=== PATIENT | female | born 1970 | race Hispanic/Latino ===

== ENCOUNTER 2017-03-09 20:50 | Observation (INO) | payer OTHER ==
[~2017-03-09] VITALS: Ht 165.1 cm; Wt 93.4 kg
--- NOTE | 2017-03-09 21:17 | NUR ---
ADVISED OF BUSY ER STATUS AMD REMANDED TO THE WR.
--- NOTE | 2017-03-09 21:51 | NUR ---
walked back to room 15.
[2017-03-09 22:50] LABS: HEMATOCRIT 41.8 % (37.0-47.0); HEMOGLOBIN 13.7 g/dl (12.0-16.0); IMMATURE GRANULOCYTES 0.5 % (0.0-1.0); MEAN CELL VOLUME 84.6 fL CALC (80.0-100.0); MEAN CORPUSCULAR HGB 27.7 pG CALC (26.0-32.0); MEAN CORPUSCULAR HGB CONC 32.8 g/L CALC (32.0-36.0); NEUT# 17.3 thou/uL (2.00-7.15); RED BLOOD COUNT 4.94 mill/uL (4.20-5.60); RED CELL DISTRI WIDTH 14.3 % (11.5-15.5)
[2017-03-09 23:03] LABS: ALBUMIN 4.4 g/dL (3.2-5.0); ALKALINE PHOSPHATASE 121 u/l (38-126); ANION GAP 19 (6-22 (CALC)); BILIRUBIN, TOTAL 1.6 mg/dL (0.0-1.4); BUN 18 mg/dL (7-17); BUN/CREATININE RATIO 24 (12-20 (CALC)); CALCIUM 9.9 mg/dL (8.4-10.2); CARBON DIOXIDE 24 mmol/l (22-30); CHLORIDE 103 mmol/l (95-108); CREATININE 0.8 mg/dL (0.5-1.0); GFR > 60 ML/MIN (>=60 (CALC)); GFR FOR AFR.AMER. > 60 ML/MIN (>=60 (CALC)); GLUCOSE 125 mg/dL (65-105); POTASSIUM 4.1 mmol/l (3.5-5.1); SGOT/AST 17 u/l (14-36); SGPT/ALT 38 u/l (9-52); SODIUM 141 mmol/l (137-146); TOTAL PROTEIN 7.8 g/dL (6.3-8.2)
--- NOTE | 2017-03-09 23:05 | NUR ---
W/P/D NO COUGH OR CONGESTION.NO C/O PAIN
--- NOTE | 2017-03-10 00:20 | NUR ---
FEVER HAS RESOLVED NO SWEATS NO COUGH NO CONGESTION
--- NOTE | 2017-03-10 00:50 | NUR ---
PHONE RWEPORT TO MARIA M NORRIS ON MS2
--- NOTE | 2017-03-10 01:12 | NUR ---
TO FLOOR VIA STRETCHER IN IMPROVED STABLE CONDITION
--- NOTE | 2017-03-10 01:20 | NUR ---
PT TRANSFERRED TO FLOOR VIA STRETCHER ACCOMPANIED BY ENOCRN;PT AMBULATED WITH A STEADY GAIT TO BEDSIDE;WT AND VS OBTAINED BY MARK LOPEZ;PT ORIENTED TO ROOM AND CALL LIGHT SYSTEM AND VERBALIZES UNDERSTANDING;ASSESSMENT COMPLETED;#20G TO LAC INFUSING LR @ 100ML/HR WELL;SKIN INTACT;PT REPORTS HAVING A FEVER FOR 3 DAYS AND A "KNOT" ON THE RIGHT SIDE OF HER NECK;PT DENIES ANY PAIN AT THIS TIME BUT IS EDUCATED ON PAIN SCALE AND REPORTING;RESPIRATIONS EVEN AND UNLABORED ON RA;PT CURRENT TEMP 100.2,PT TO BE MEDICATED WITH PRN TYLENOL 1000MG;SAFETY PRECAUTIONS REINFORCED;PT DENIES ANY NEEDS AT THIS TIME AND IS EDUCATED TO CALL FOR ASSISTANCE IF NEEDED;CALL LIGHT IN REACH;WILL CONTINUE TO MONITOR
--- NOTE | 2017-03-10 03:00 | NUR ---
PT CURRENT TEMP 98.4
[2017-03-10 05:27] VITALS: BP 114/70
--- NOTE | 2017-03-10 05:30 | NUR ---
PT APPEARS TO BE SLEEPING WITH EYES CLOSED;WOKE PT TO OBTAIN VS;PT VOICES NO COMPLAINTS OR CONCERNS AT THIS TIME;PT AMBULATED TO RESTROOM WITH A STEADY GAIT;UA COLLECT;IV FLUIDS INFUSING WELL TO LAC;RESPIRATIONS EVEN AND UNLABORED ON RA;PT DENIES ANY OTHER NEEDS AT THIS TIME;PT EDUCATED TO CALL FOR ASSISTANCE IF NEEDED;CALL LIGHT IN REACH;WILL CONTINUE TO MONITOR
[2017-03-10 06:12] LABS: BARBITURATES NEGATIVE (NEGATIVE); COCAINE NEGATIVE (NEGATIVE); METHADONE NEGATIVE (NEGATIVE); OXCYCODONE NEGATIVE (NEGATIVE); TETRAHYDROCANNABIONOL NEGATIVE (NEGATIVE); TRICYLIC ANTIDEPRESSANTS POSITIVE (NEGATIVE)
--- NOTE | 2017-03-10 07:22 | NUR ---
SHIFT CHANGE REPORT FROM SEA, PT SLEEPING BUT AWAKENS TO VERBAL STIMULI, STATES SHE JUST FEELS TIRED AND C/O DRY MOUTH, ICE CHIPS OFFERED, IVF INFUSING, CALL DOMINGUEZ IN REACH.
[2017-03-10 08:11] VITALS: BP 116/73
[2017-03-10] MEDS ORDERED: PROTONIX40 M2 PO (10:08)
[2017-03-10] MEDS ORDERED: BISOPRL/HCT1 PO (10:08)
[2017-03-10] MEDS ORDERED: MEDDOSEPAK PO (10:09)
[2017-03-10] MEDS ORDERED: AUGMENTIN875TAB PO (10:09)
--- NOTE | 2017-03-10 11:26 | NUR ---
PT STATES SWELLING TO R.NECK HAS RECEEDED AND PAIN MUCH CONTROLLED, ALL NEEDS ADDRESSED, CALL DOMINGUEZ IN REACH.
--- NOTE | 2017-03-10 14:07 | NUR ---
Discharge instructions given. Patient verbalizes understanding of same. Discharged in good condition via Wheelchair to Home with family. All belongings sent with pt.
== END 2017-03-10 14:00 | disposition home or self-care (01) | DRG 153 ==
LOC: ED 20:50 → ED-I 03-10 00:12 → ED 03-10 00:28 → MS2 03-10 00:29
PROVIDERS: Emergency Medicine; ADMIT Internal Medicine; ATTEND Internal Medicine
DX: J03.90 Acute tonsillitis, unspecified (principal); I10 Essential (primary) hypertension; K21.9 Gastro-esophageal reflux disease without esophagitis
CPT/HCPCS: G0378; J1650; Q9967

== ENCOUNTER 2018-02-24 08:23 | Emergency (ER) | payer OTHER ==
[~2018-02-24] VITALS: Ht 165.1 cm; Wt 90.9 kg
[~2018-02-24 08:23] MED LIST: AUGMENTIN875TAB PO; BISOPRL/HCT1 PO; MEDDOSEPAK PO; PROTONIX40 M2 PO
[2018-02-24 08:57] LABS: HEMATOCRIT 38.6 % (37.0-47.0); HEMOGLOBIN 12.8 g/dl (12.0-16.0); IMMATURE GRANULOCYTES 0.7 % (0.0-5.0); MEAN CELL VOLUME 83.5 fL CALC (80.0-100.0); MEAN CORPUSCULAR HGB 27.7 pG CALC (26.0-32.0); MEAN CORPUSCULAR HGB CONC 33.2 g/L CALC (32.0-36.0); NEUT# 6.36 thou/uL (2.00-7.15); RED BLOOD COUNT 4.62 mill/uL (4.20-5.60); RED CELL DISTRI WIDTH 13.8 % (11.5-15.5)
[2018-02-24 09:09] LABS: URINE BILIRUBIN - DIPSTICK NEGATIVE (NEGATIVE); URINE BLOOD DIPSTICK NEGATIVE (NEGATIVE); URINE COLOR YELLOW; URINE GLUCOSE - DIPSTICK NEGATIVE (NEGATIVE); URINE KETONE NEGATIVE (NEGATIVE); URINE LEUK ESTERASE TRACE (NEGATIVE); URINE NITRITE - DIPSTICK NEGATIVE (Negative); URINE PH 5.5 (4.5-8.0); URINE PROTEIN - DIPSTICK NEGATIVE (NEG-TRACE); URINE SPECIFIC GRAVITY >=1.030; URINE UROBILINOGEN - DIPSTICK 0.2 E.U./dL (0.2)
[2018-02-24 09:10] LABS: URINE CLARITY SL CLOUDY
[2018-02-24 09:16] LABS: ALBUMIN 4.2 g/dL (3.2-5.0); ALKALINE PHOSPHATASE 103 u/l (38-126); AMYLASE 34 u/l (30-110); ANION GAP 15 (6-22 (CALC)); BILIRUBIN, TOTAL 1.1 mg/dL (0.0-1.4); BUN 15 mg/dL (7-17); BUN/CREATININE RATIO 20 (12-20 (CALC)); CARBON DIOXIDE 23 mmol/l (22-30); CHLORIDE 105 mmol/l (95-108); CREATININE 0.8 mg/dL (0.5-1.0); GFR > 60 ML/MIN (>=60 (CALC)); GFR FOR AFR.AMER. > 60 ML/MIN (>=60 (CALC)); LIPASE 24 u/l (23-300); POTASSIUM 3.7 mmol/l (3.5-5.1); SGOT/AST 24 u/l (14-36); SODIUM 139 mmol/l (137-146); TOTAL PROTEIN 7.4 g/dL (6.3-8.2)
[2018-02-24] MEDS ORDERED: ZOFRAN ODT4 MG PO (12:10)
[2018-02-24] MEDS ORDERED: CIPROFLOXACN500 MG PO (12:10)
[2018-02-24] MEDS ORDERED: LOMOTIL2.5 MG PO (12:10)
[2018-02-24 12:42] VITALS: BP 105/63
== END 2018-02-24 12:43 | disposition home or self-care (01) ==
LOC: ED 08:23
PROVIDERS: Emergency Medicine
DX: K52.9 Noninfective gastroenteritis and colitis, unspecified (principal); E11.9 Type 2 diabetes mellitus without complications; I10 Essential (primary) hypertension; R11.2 Nausea with vomiting, unspecified; R10.33 Periumbilical pain; R19.7 Diarrhea, unspecified
CPT/HCPCS: Q9967; S0164